=== PATIENT | female | born 2000 | race Caucasian/White ===

== ENCOUNTER 2024-06-21 19:11 | Emergency (ER) | payer OTHER, SELFPAY ==
[2024-06-21 19:17] VITALS: BP 128/79; PULSE 84; TEMP 36.6; O2SAT 99; BMI 31.9
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
[2024-06-21 21:24] VITALS: BP 115/68; PULSE 84; O2SAT 99
== END 2024-06-21 21:27 | disposition home or self-care (01) ==
PROVIDERS: Emergency Provider Emergency Medicine
DX: T14.8XXA Other injury of unspecified body region, initial encounter (principal); V43.52XA Car driver injured in collision with other type car in traffic accident, initial encounter
CPT/HCPCS: 71045; 99283